=== PATIENT | female | born 1965 | race Caucasian/White ===

== ENCOUNTER → 2017-04-01 | Outpatient (CLI) | payer BC ==
[2017-04-01 13:52] LABS: ABSOLUTE EOSINOPHILS 0.1 thou/uL (0.0-0.7); ABSOLUTE MONOCYTES 0.4 thou/uL (0.0-1.2); ABSOLUTE NEUTROPHILS 6.5 thou/uL (1.6-8.1); BASOPHILS 0.5 %; EOSINOPHILS 0.9 %; HEMATOCRIT 41.5 % (37.0-47.0); HEMOGLOBIN 13.9 gm/dL (12.0-15.0); LYMPHOCYTES 12.3 %; MCHC 33.5 g/dL (28.0-37.0); MCV 92.6 fL (80.0-100.0); MPV 7.6 fl. (7.2-11.1); NUCLEATED RBCS 0 /100WBC; PLATELET COUNT* 227 thou/uL (150-400); POLYS 81.3 %; RBC 4.48 mil/uL (4.20-5.00); RDW-CV 13.6 % (10.5-14.5)
[2017-04-01 14:06] LABS: CREATININE 0.8 mg/dL (0.6-1.3); POTASSIUM 3.2 mmol/L (3.5-5.1)
--- NOTE | 2017-04-01 16:04 | EKG ---
[place] [address] ELECTROCARDIOGRAM REPORT Name: JAK MUNIZ Room: [facility]#: [id number] Admission: 04/01/17 Attend Phys: Vince Madsen MD Discharge: Date of : 65 Report #: [id number] THIS REPORT FOR: //name// [facility] Test Date: 2017-04-01 Test Time: 13:26:27 Pat Name: JAK MUNIZ Department: Room: Gender: F [employer]pp[employer]pper: KISHOR : 1965 Requested By: Vince Madsen Order Number: [id number] Reading MD: Saurabh Maddox Measurements Intervals [place] Rate: 71 P: 19 [place]: 129 QRS: 61 QRSD: 96 T: 19 QT: 409 QTc: 445 Interpretive Statements Sinus rhythm No previous ECG available for comparison Electronically Signed On 04-01-2017 16:04:43 [employer] by Saurabh Maddox [email or web address] <ELECTRONICALLY SIGNED> By: Saurabh Maddox MD, [facility] 04/01/17 1604 1326 1326 Saurabh Maddox MD, FACC /EPI
== END ==
LOC: M.CRD 13:07 → M.LAB 13:07
PROVIDERS: Urology
DX: Z01.818 Encounter for other preprocedural examination (principal); N31.9 Neuromuscular dysfunction of bladder, unspecified